=== PATIENT | female | born 1935 | race Caucasian/White ===

== ENCOUNTER 2017-06-16 11:18 | Emergency (ER) | payer MEDICARE, OTHER ==
[~2017-06-16] VITALS: Wt 85.0 kg
[~2017-06-16 11:18] MED LIST: ATEN-138; CLOP75TA19; LEVO25TA59; SIMV40TA2; TOF25
[2017-06-16] MEDS ORDERED: ONDANSETRON 4 MG INJ IV STA (11:35)
[2017-06-16] MEDS ORDERED: morphine 2 MG INJ IV STA (11:35)
[2017-06-16] MEDS ORDERED: SOD CHLORIDE 0.9% 1,000 ML IV STA (11:35)
[2017-06-16] MEDS ORDERED: LORAZEPAM 2 MG INJ IV ONE (12:00)
[2017-06-16 12:13] LABS: BASOPHILS % 0.3 % (0.0-2.0); EOSINOPHILS # 0.1 10^3/ul (0.0-0.5); EOSINOPHILS % 0.8 % (0.0-7.0); HEMATOCRIT 44.6 % (37.0-47.0); HEMOGLOBIN 14.4 g/dl (12.0-16.0); LYMPHOCYTES # 1.8 10^3/ul (0.8-2.9); LYMPHOCYTES % 14.3 % (15.0-51.0); MEAN CORPUSCULAR HEMOGLOBIN 27.3 pg (29.0-33.0); MEAN CORPUSCULAR HGB CONC 32.3 g/dl (32.0-37.0); MEAN CORPUSCULAR VOLUME 84.5 fl (82.0-101.0); MEAN PLATELET VOLUME 11.2 fl (7.4-10.4); MONOCYTE # 0.6 10^3/ul (0.3-0.9); MONOCYTES % 4.4 % (0.0-11.0); NEUTROPHIL # 10.2 10^3/ul (1.6-7.5); NEUTROPHILS % 79.7 % (39.0-77.0); PLATELET COUNT 273 10^3/UL (140-415); RED BLOOD COUNT 5.28 10^6/ul (4.20-5.40); RED CELL DISTRIBUTION WIDTH 14.1 % (11.5-14.5); WHITE BLOOD COUNT 12.8 10^3/ul (4.8-10.8)
[2017-06-16] MEDS ORDERED: OLOP2.5D5 OP (12:15)
[2017-06-16] MEDS ORDERED: UMEC62.5 IH (12:16)
[2017-06-16] MEDS ORDERED: ICOS1CAP PO (12:17)
[2017-06-16] MEDS ORDERED: VORT20TA PO (12:17)
[2017-06-16] MEDS ORDERED: MIRA25TA PO (12:19)
[2017-06-16] MEDS ORDERED: LUBI24CA7 PO (12:20)
[2017-06-16] MEDS ORDERED: RANO500T2 PO (12:20)
[2017-06-16] MEDS ORDERED: ABAT250V IV (12:21)
[2017-06-16] MEDS ORDERED: CRES10 PO (12:22)
[2017-06-16] MEDS ORDERED: IMIP25TA3 PO (12:22)
[2017-06-16] MEDS ORDERED: SOLI5TAB5 PO (12:22)
[2017-06-16] MEDS ORDERED: NORT25CA PO (12:23)
[2017-06-16] MEDS ORDERED: OMEP20CA16 PO (12:24)
[2017-06-16] MEDS ORDERED: LOSA25TA5 PO (12:24)
[2017-06-16] MEDS ORDERED: ZALE10CA PO (12:24)
[2017-06-16] MEDS ORDERED: GABA300C16 PO (12:25)
[2017-06-16] MEDS ORDERED: ATEN-51 PO (12:25)
[2017-06-16] MEDS ORDERED: LEVO25TA50 PO (12:26)
[2017-06-16] MEDS ORDERED: FOLI-49 PO (12:27)
[2017-06-16] MEDS ORDERED: CALC-277 PO (12:27)
[2017-06-16] MEDS ORDERED: LORA0.5T PO (12:28)
[2017-06-16 12:33] LABS: ALANINE AMINOTRANSFERASE 21 IU/L (13-69); ALBUMIN 4.1 g/dl (3.3-4.9); ALBUMIN/GLOBULIN RATIO 1.17; ALKALINE PHOSPHATASE 110 IU/L (42-121); ANION GAP 18 (8-16); ASPARTATE AMINO TRANSFERASE 19 IU/L (15-46); BILIRUBIN,INDIRECT 1.5 mg/dl (0-1.1); BILIRUBIN,TOTAL 1.5 mg/dl (0.2-1.3); BLOOD UREA NITROGEN 13 mg/dl (7-20); CALCIUM 9.1 mg/dl (8.4-10.2); CARBON DIOXIDE 26 mmol/L (21-31); CHLORIDE 100 mmol/L (97-110); CREATININE 0.58 mg/dl (0.44-1.00); GLUCOSE 137 mg/dl (70-220); POTASSIUM 3.7 mmol/L (3.5-5.1); SODIUM 140 mmol/L (135-144); TOTAL PROTEIN 7.6 g/dl (6.1-8.1)
[2017-06-16 12:49] LABS: TROPONIN-I < 0.012 ng/ml (0.00-0.12)
--- NOTE | 2017-06-16 13:12 | RADRPT ---
PROCEDURE: CT brain without contrast CLINICAL INDICATION: Headaches with nausea and vomiting TECHNIQUE: CT of the brain without contrast performed on a multidetector CT scanner, with multiplan ar reformats. One or more of the following dose reduction techniques were used: Automated exposure control, adjustment in mA and / or kV according to patient size, use of iterative reconstructive yazmin hnique. CTDIvol = 44 mGy; DLP = 630 mGy-cm. COMPARISON: None available FINDINGS: No acute intracranial hemorrhage is identified. No extra-axial fluid collection is seen. There is no mass effect. No midline shift is identified. The ventricles and sulci are mildly enlarged compatible with generalized volume loss. There are mild to moderate areas of hypodensity in the periventricular - deep white matter which are nonspecific but suggestive of chronic small vessel ischemic changes. Samuel-white differentiation is preserved. Atherosclerotic calcifications of the proximal intracranial arteries are noted. The calvarium and skull base appear intact. Mastoid air cells and imaged paranasal sinuses grossly clear. IMPRESSION: 1. No evidence of acute intracranial pathology. 2. Mild generalized volume loss, with mild to moderate chronic small vessel ischemic changes. RPTAT: VV .Remi Laura MD, MD Date Time Electronically viewed and signed by .Remi Laura MD, MD on 06/16/2017 13:12 .O/
[2017-06-16 13:16] LABS: ADD UMIC YES; UR ASCORBIC ACID NEGATIVE (NEGATIVE); UR BILIRUBIN (Dip) NEGATIVE (NEGATIVE); UR BLOOD (Dip) 1+ mg/dL (NEGATIVE); UR CLARITY CLEAR (CLEAR); UR COLOR YELLOW (YELLOW); UR GLUCOSE (Dip) NEGATIVE (NEGATIVE); UR KETONES (Dip) NEGATIVE (NEGATIVE); UR LEUKOCYTE ESTERASE (Dip) NEGATIVE Leu/ul (NEGATIVE); UR NITRITE (Dip) NEGATIVE (NEGATIVE); UR RBC 6 /HPF (0-5); UR SPECIFIC GRAVITY (Dip) 1.014 (1.003-1.030); UR TOTAL PROTEIN (Dip) NEGATIVE (NEGATIVE); UR UROBILINOGEN (Dip) NEGATIVE (NEGATIVE)
[2017-06-16] MEDS ORDERED: ONDA4TAB8 PO (13:29)
[2017-06-16] MEDS ORDERED: ALPR0.5T PO (13:29)
--- NOTE | 2017-06-16 13:35 | ERD ---
ER Documentation Chief Complaint Date/Time DATE: 06/16/17 TIME: 13:31 Chief Complaint HEADACHE NAUSEA VOMITING SINCE LAST NIGHT. NO TRAUMA NOTED. NO NEURO DEF HPI 82-year-old woman brought in by EMS from home for complaints of headache, nausea , vomiting associated with hypertension despite using beta-blockers therapy at home. Daughter who is at the bedside states this happens about 2-3 times per year and resolves after 1-2 days. Patient has had no slurred speech, no weakness in arms or legs, no loss of consciousness, no complaints of chest pain or shortness of breath. She has had clear nonbloody nonbilious emesis and denies abdominal pain, melena or blood per rectum. Patient was transported here by EMS without further complications. ROS All systems reviewed and are negative except as per history of present illness. Medications Home Meds Active Scripts Ondansetron Hcl* (Zofran*) 4 Mg Tablet, 4 MG PO Q8H Y for NAUSEA AND/OR VOMITING , #15 TAB Prov:ERICK WILKINSON MD 06/16/17 Alprazolam* (Xanax*) 0.5 Mg Tab, 0.5 MG PO BID Y for ANXIETY, #10 TAB Prov:ERICK WILKINSON MD 06/16/17 Reported Medications Lorazepam* (Lorazepam*) 0.5 Mg Tablet, 0.5 MG PO BID Y for ANXIETY, TAB 06/16/17 Folic Acid* (Folic Acid*) 1 Mg Tablet, 1 MG PO DAILY, TAB 06/16/17 Calcium Carbonate/Vitamin D3 (OYSTER SHELL 500 MG + VIT D TB) 1 Each Tablet, 1 EACH PO BID, TAB 06/16/17 Levothyroxine Sodium* (Levoxyl*) 25 Mcg Tablet, 25 MCG PO BEFORE BREAKFAST, #30 TAB 06/16/17 Atenolol* (Atenolol*) 25 Mg Tablet, 25 MG PO DAILY, #30 TAB 06/16/17 Gabapentin* (Gabapentin*) 300 Mg Capsule, 300 MG PO BID, #60 CAP 06/16/17 Losartan Potassium* (Losartan Potassium*) 25 Mg Tablet, 25 MG PO DAILY, TAB 06/16/17 Omeprazole* (Omeprazole*) 20 Mg Capsule.dr, 20 MG PO DAILY, #30 CAP 06/16/17 Zaleplon (Zaleplon) 10 Mg Capsule, 10 MG PO HS Y for INSOMNIA, CAP 06/16/17 Nortriptyline Hcl* (Nortriptyline Hcl*) 25 Mg Capsule, 25 MG PO HS, CAP 06/16/17 Imipramine Hcl* (Imipramine Hcl*) 25 Mg Tablet, 25 MG PO HS, TAB 06/16/17 Rosuvastatin Calcium* (Crestor*) 10 Mg Tablet, 10 MG PO QHS, #30 TAB 06/16/17 Solifenacin* (Vesicare*) 5 Mg Tablet, 5 MG PO DAILY, TAB 06/16/17 Abatacept/Maltose (Orencia 250 mg Vial) 250 Mg Vial, 250 MG IV DAILY, VIAL 06/16/17 Ranolazine* (Ranexa*) 500 Mg Tab.sr.12h, 500 MG PO Q12, TAB 06/16/17 Lubiprostone* (Amitiza*) 24 Mcg Capsule, 24 MCG PO DAILY, #60 CAP 06/16/17 Icosapent Ethyl (VASCEPA) 1 Gm Capsule, 1 GM PO QID, CAP 06/16/17 Vortioxetine Hydrobromide (Brintellix) 20 Mg Tablet, 20 MG PO DAILY, TAB 06/16/17 Umeclidinium [place] (Incruse Ellipta) 62.5 Mcg Blst.w.dev, 62.5 MCG IH DAILY 06/16/17 Olopatadine HCl (Pazeo) 2.5 Ml Drops, 2.5 ML OP DAILY, BOTTLE 06/16/17 Discontinued Reported Medications Mirabegron (Mybetriq) 25 Mg Tab.er.24h, 25 MG PO DAILY, TAB 06/16/17 Simvastatin* (Zocor*) 40 Mg Tablet 11/04/10 Levothyroxine Sodium* (Synthroid*) 25 Mcg Tablet 11/04/10 Atenolol (Tenormin) 25 Mg Tab 11/04/10 Clopidogrel Bisulfate (Plavix) 75 Mg Tablet 11/04/10 Imipramine Hcl (Tofranil) 25 Mg Tab 11/04/10 Allergies Allergies: Coded Allergies: Penicillins (Verified Allergy, Mild, 06/16/17) PMhx/Soc Hypertension, hypercholesterolemia, gastritis, obesity, diabetes mellitus, hypothyroidism, anxiety History of Surgery: Yes (BUNION REPAIR B/L FEET , STENT ) Anesthesia Reaction: No Hx Neurological Disorder: No Hx Respiratory Disorders: No Hx Cardiac Disorders: Yes (HTN , STENT ) Hx Psychiatric Problems: No Hx Miscellaneous Medical Probl: No Hx Alcohol Use: No Hx Substance Use: No Hx Tobacco Use: No Smoking Status: Never smoker FmHx Family History: No diabetes Physical Exam Vitals Vital Signs Date Time Temp Pulse Resp B/P Pulse Ox O2 Delivery O2 Flow Rate FiO2 06/16/17 15:50 98.5 65 16 163/67 99 Room Air Nasal Cannula 06/16/17 13:55 67 18 160/64 99 Nasal Cannula 2.0 06/16/17 12:00 61 18 165/62 99 Nasal Cannula 2.0 06/16/17 11:28 98.6 76 20 209/94 99 Physical Exam GENERAL: Well-developed, well-nourished, well-hydrated, nauseous, anxious, afebrile HEENT: Moist mucous membranes, pink conjunctiva, no cervical spine tenderness or step-off deformities, no goiter, no jaundice or icterus, extraocular movements intact without pain. No submandibular induration, and no pharyngeal erythema NEURO: Alert and oriented 3, cranial nerves II through XII intact bilaterally, pupils equal round reactive to light, no focal deficits or facial asymmetry, sensation intact distally Strength 5/5 in upper and lower extremities bilaterally CARDIAC: Regular rate and rhythm, no murmurs rubs or gallops LUNGS: Clear bilaterally no wheezing crackles or stridor ABDOMEN: Soft nontender, no guarding, no rigidity, no rebound, no psoas sign no obturator sign. Normoactive bowel sounds SKIN: Warm and dry to touch, no abrasions, contusions, or hematomas, no lacerations, no ecchymosis, no target lesions, and without ulcers EXTREMITIES: No clubbing cyanosis or edema, calves are bilaterally symmetrical, no Homans sign, no popliteal cord sign. Distal pulses equal and bilateral PSYCH: Anxious Result Diagram: 06/16/17 1150 06/16/17 1150 Results 24 hrs Laboratory Tests Test 06/16/17 11:50 06/16/17 12:22 White Blood Count 12.810^3/ul Red Blood Count 5.2810^6/ul Hemoglobin 14.4g/dl Hematocrit 44.6% Mean Corpuscular Volume 84.5fl Mean Corpuscular Hemoglobin 27.3pg Mean Corpuscular Hemoglobin Concent 32.3g/dl Red Cell Distribution Width 14.1% Platelet Count 88871^3/UL Mean Platelet Volume 11.2fl Neutrophils % 79.7% Lymphocytes % 14.3% Monocytes % 4.4% Eosinophils % 0.8% Basophils % 0.3% Nucleated Red Blood Cells % 0.0/100WBC Neutrophils # 10.210^3/ul Lymphocytes # 1.810^3/ul Monocytes # 0.610^3/ul Eosinophils # 0.110^3/ul Basophils # 0.010^3/ul Nucleated Red Blood Cells # 0.010^3/ul Sodium Level 140mmol/L Potassium Level 3.7mmol/L Chloride Level 100mmol/L Carbon Dioxide Level 26mmol/L Anion Gap 18 Blood Urea Nitrogen 13mg/dl Creatinine 0.58mg/dl Glucose Level 137mg/dl Calcium Level 9.1mg/dl Total Bilirubin 1.5mg/dl Direct Bilirubin 0.00mg/dl Indirect Bilirubin 1.5mg/dl Aspartate Amino Transf (AST/SGOT) 19IU/L Alanine Aminotransferase (ALT/SGPT) 21IU/L Alkaline Phosphatase 110IU/L Troponin I < 0.012ng/ml Total Protein 7.6g/dl Albumin 4.1g/dl Globulin 3.50g/dl Albumin/Globulin Ratio 1.17 Lipase 60U/L Urine Color YELLOW Urine Clarity CLEAR Urine pH 7.0 Urine Specific [place] 1.014 Urine Ketones NEGATIVEmg/dL Urine Nitrite NEGATIVEmg/dL Urine Bilirubin NEGATIVEmg/dL Urine Urobilinogen NEGATIVEmg/dL Urine Leukocyte Esterase NEGATIVELeu/ul Urine Microscopic RBC 6/HPF Urine Microscopic WBC 1/HPF Urine Hemoglobin 1+mg/dL Urine Glucose NEGATIVEmg/dL Urine Total Protein NEGATIVEmg/dl Current Medications Medications (Trade) Dose Ordered Sig/Cathie Route PRN Reason Start Time Stop Time Status Last Admin Dose Admin Sodium Chloride (NS) 1,000 ml @ 1,000 mls/hr Q1H STAT IV 06/16/17 11:35 06/16/17 12:34 DC 06/16/17 11:47 Morphine Sulfate (morphine) 2 mg ONCE STAT IV 06/16/17 11:35 06/16/17 11:37 DC 06/16/17 11:47 Ondansetron HCl (Zofran Inj) 4 mg ONCE STAT IV 06/16/17 11:35 06/16/17 11:37 DC 06/16/17 11:47 Lorazepam (Ativan) 0.5 mg ONCE ONCE IV 06/16/17 12:00 06/16/17 12:01 DC 06/16/17 11:47 Procedures/MDM IV line was established 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 Patient was afebrile. EKG performed, read by me revealed a normal sinus rhythm at 69 bpm, normal axis , narrow QRS complex, no concerning ST elevations or depressions noted. LVH in lead I. CT scan of the brain was performed that was negative for acute bleed mass or shift. I administered 1 L normal saline intravenously, Zofran 4 mg IV, morphine 2 mg IV 1, and lorazepam 0.5 mg IV 1. CBC was normal, electrolytes normal, liver function tests normal, troponin negative, urine analysis negative for infection. Observation Note: Time: 6 hours Family Hx: No Hypertension Evaluation: Multiple exams showed improving symptoms and no evidence of worsening mental status or nausea. Differential diagnoses considered, included but not limited to acute coronary syndrome, pulmonary embolism, aortic dissection, abdominal aortic aneurysm, sepsis, stroke, meningitis, encephalitis, pneumonia, appendicitis, cholecystitis , bowel obstruction, pyelonephritis, nephrolithiasis, cystitis, as well as metabolic, hematologic, and electrolyte abnormalities. As well as abscess, cellulitis, fractures, and dislocations. Patient feels much better at this time, and vital signs are normal, symptoms have improved. I did give strict instructions to return to the ED if symptoms continue or worsen, patient will otherwise follow-up with primary care physician. Patient understood instructions and agreed to plan. Disclaimer: Inadvertent spelling and grammatical errors are likely due to EHR/ dictation software use and do not reflect on the overall quality of patient care. Also, please note that the electronic time recorded on this note does not necessarily reflect the actual time of the patient encounter. Departure Diagnosis: Primary Impression: Vomiting Vomiting type: unspecified Vomiting Intractability: non-intractable Nausea presence: with nausea Qualified Code: R11.2 - Non-intractable vomiting with nausea, unspecified vomiting type Additional Impressions: Headache Headache type: tension-type Headache chronicity pattern: acute headache Intractability: not intractable Qualified Code: G44.209 - Acute non intractable tension-type headache Hypertension Hypertension type: essential hypertension Qualified Code: I10 - Essential hypertension Condition: Good Patient Instructions: High Blood Pressure (Hypertension), Headache, Tension, Vomiting (6Y-Adult) ERICK WILKINSON MD Jun 16, 2017 13:35
--- NOTE | 2017-06-16 14:13 | RADRPT ---
PROCEDURE: XR Chest. CLINICAL INDICATION: Abdominal and chest pain. TECHNIQUE: Single frontal chest x-ray. COMPARISON: None available FINDINGS: The lungs are hypoinflated with moderate central vascular crowding versus congestion and bibasilar a telectasis. No pneumothorax or pleural effusion is seen. Aortic arch atherosclerotic calcification s are present. Otherwise, the cardiomediastinal silhouette is unremarkable. The osseous structures are grossly unremarkable. IMPRESSION: Hypoinflation with moderate central vascular congestion versus crowding and bibasilar atelectasis . RPTAT: JJ .Vikas Renee MD, Date Time Electronically viewed and signed by .Vikas Renee MD, on 06/16/2017 14:12 .A/
[2017-06-16 15:50] VITALS: BP 163/67; PULSE 65; RESP 16; TEMP 98.5
== END 2017-06-16 15:53 | disposition home or self-care (01) ==
LOC: E/R 11:18
DX: R11.2 Nausea with vomiting, unspecified (principal); G44.209 Tension-type headache, unspecified, not intractable; I10 Essential (primary) hypertension; E11.9 Type 2 diabetes mellitus without complications; E03.9 Hypothyroidism, unspecified; E66.9 Obesity, unspecified; Z79.01 Long term (current) use of anticoagulants; Z98.61 Coronary angioplasty status
CPT/HCPCS: 36415; 70450; 71010; 80053; 81001; 83690; 84484; 85025; 93005; 96374; 96375; 99285; J2060; J2270; J2405; J7030; P9612

== ENCOUNTER 2018-05-27 11:55 | Emergency (ER) | END 2018-05-27 17:44 | disposition home or self-care (01) ==